=== PATIENT | female | born 1985 ===

== ENCOUNTER 2019-09-24 05:54 | Day surgery (SDC) | payer OTHER ==
[~2019-09-24] VITALS: Wt 144.1 kg
[~2019-09-24 05:54] MED LIST: BUPR75 PO; Flonase 0.05% N16 GM; LABE200 PO; METF500 PO; METO10 PO; Naltrexone HCl50 MG PO; ONDA4ODT MM; RXHYDMOR2 PO; RXONDA4ODT MM; SULTRIDS PO; [UNRECOGNIZED DRUG - OTHER] PO
--- NOTE | 2019-09-24 06:44 | NUR ---
Ambulatory in Day Surgery History, Chart, Medications and Allergies reviewed before start of procedure.Lungs clear T/O to Auscultation. Patient confirms NPO status and agrees with scheduled surgery. Patient States Post-Procedure ride home has been arranged.
--- NOTE | 2019-09-24 11:24 | NUR ---
"DAY SURGERY RN | DISCHARGE VSS. A/O. DENIES NAUSEA. PAIN MANAGEABLE BUT INCEASING. DISCHARGE INSTRUCTIONS AND RX GIVEN TO FAMILY WITH FAMILY PRESENT. TOLERATING PO FLUIDS AND FOOD. MEDS GIVEN PER ORDER. STATES READY TO GO. NO ISSUES. TAKEN IN WHEELCHAIR TO FRONT ENTRANCE BY THIS RN. FAMILY IS RIDE HOME."
== END 2019-09-24 22:51 | disposition home or self-care (01) ==
LOC: ORSCMMR 05:54 → ORD 07:30 → ORSCMMR 07:30
PROVIDERS: Obstetrics & Gynecology
PROC: 0UDB8ZX Extraction of Endometrium, Via Natural or Artificial Opening Endoscopic, Diagnostic (ICD-10-PCS; principal; 2019-09-24 07:30)
PROC: 0UPD8HZ Removal of Contraceptive Device from Uterus and Cervix, Via Natural or Artificial Opening Endoscopic (ICD-10-PCS; principal; 2019-09-24 07:30)
PROC: 0UT74ZZ Resection of Bilateral Fallopian Tubes, Percutaneous Endoscopic Approach (ICD-10-PCS; principal; 2019-09-24 07:30)
PROC: 0U5B8ZZ Destruction of Endometrium, Via Natural or Artificial Opening Endoscopic (ICD-10-PCS; principal; 2019-09-24 07:30)
DX: N92.0 Excessive and frequent menstruation with regular cycle (principal); T83.32XD Displacement of intrauterine contraceptive device, subsequent encounter; Z30.2 Encounter for sterilization; I10 Essential (primary) hypertension; E11.9 Type 2 diabetes mellitus without complications; E66.01 Morbid (severe) obesity due to excess calories; Z68.43 Body mass index [BMI] 50.0-59.9, adult; Z79.899 Other long term (current) drug therapy; Z79.84 Long term (current) use of oral hypoglycemic drugs
CPT/HCPCS: 88300; 88302; 88305; J0690; J1100; J1885; J2250; J2405; J2704; J3010; J7120

== ENCOUNTER → 2023-11-01 | Outpatient (CLI) | payer OTHER | END | disposition home or self-care (01) | LOC: LAB 11:00 → LAB SHORT 11:00 | DX: R31.9 Hematuria, unspecified (principal) | CPT/HCPCS: 87086 ==